=== PATIENT | male | born 1945 | race Caucasian/White ===

== ENCOUNTER → 2020-01-21 | Outpatient (CLI) | payer OTHER ==
[~2020-01-21] MED LIST: ATENOLOL 50 MG50 M1 PO; FLECAINIDE ACE100 MG PO; LANTUS SQ; LISINOPRIL40 MG PO; NIFEDIAC PO; NOVOLOG100 UNIT/1 SQ; VYTORIN 10-401 EACH PO
== END ==
LOC: SJCVCIMAG 08:00
PROVIDERS: ATTEND Nuclear Medicine Nuclear Cardiology
DX: I70.203 Unspecified atherosclerosis of native arteries of extremities, bilateral legs (principal); L97.818 Non-pressure chronic ulcer of other part of right lower leg with other specified severity; L97.828 Non-pressure chronic ulcer of other part of left lower leg with other specified severity; Z79.899 Other long term (current) drug therapy

== ENCOUNTER → 2020-01-22 | Outpatient (CLI) | payer OTHER ==
[~2020-01-22] MED LIST changes: +ATORVASTATIN CA20 MG PO; +DILTIAZEM ER180 M2 PO; +NORVASC 2.5 MG2.5 M1 PO; +PRADAXA150 MG PO; +TYLENOL EXTRA500 MG PO
== END ==
LOC: SJCVC 13:25
PROVIDERS: ATTEND Nuclear Medicine Nuclear Cardiology
DX: I73.9 Peripheral vascular disease, unspecified (principal); I10 Essential (primary) hypertension; E11.9 Type 2 diabetes mellitus without complications; E78.00 Pure hypercholesterolemia, unspecified

== ENCOUNTER → 2020-01-25 | Outpatient (CLI) | payer OTHER ==
[~2020-01-25] VITALS: Ht 182.9 cm; Wt 106.6 kg
[2020-01-25 07:09] VITALS: BP 115/68
[2020-01-25 07:31] LABS: HEMOGLOBIN 13.3 gm/dL (14.0-18.0); MCH 30.6 pg (26.0-34.0); MCHC 33.2 g/dL (28.0-37.0); MCV 92.2 fL (80.0-100.0); RBC 4.34 mil/uL (4.50-6.00); RDW 16.5 % (10.5-14.5); WBC 10.5 thou/uL (4.0-11.0)
[2020-01-25 07:43] LABS: CALCIUM 9.1 mg/dL (8.5-10.1); CREATININE 1.5 mg/dL (0.7-1.3); POTASSIUM 3.7 mmol/L (3.5-5.1)
== END | disposition home or self-care (01) ==
LOC: CATH 06:42
PROVIDERS: ATTEND Nuclear Medicine Nuclear Cardiology
DX: I70.238 Atherosclerosis of native arteries of right leg with ulceration of other part of lower leg (principal); L97.919 Non-pressure chronic ulcer of unspecified part of right lower leg with unspecified severity; I70.1 Atherosclerosis of renal artery; I10 Essential (primary) hypertension; I25.10 Atherosclerotic heart disease of native coronary artery without angina pectoris; E11.9 Type 2 diabetes mellitus without complications; E78.5 Hyperlipidemia, unspecified; K21.9 Gastro-esophageal reflux disease without esophagitis; E66.9 Obesity, unspecified; I48.91 Unspecified atrial fibrillation; I48.92 Unspecified atrial flutter; M19.90 Unspecified osteoarthritis, unspecified site; Z98.890 Other specified postprocedural states; Z79.899 Other long term (current) drug therapy; Z79.01 Long term (current) use of anticoagulants; Z79.4 Long term (current) use of insulin; Z87.442 Personal history of urinary calculi; Z96.652 Presence of left artificial knee joint